=== PATIENT | female | born 1995 | race Caucasian/White ===

== ENCOUNTER 2020-09-18 18:48 | Emergency (ER) | payer BC ==
[~2020-09-18] VITALS: Ht 167.6 cm; Wt 99.8 kg
[2020-09-18] MEDS ORDERED: ADDERALL XR 2525 MG PO (19:04)
[2020-09-18] MEDS ORDERED: ULTRAM50 MG PO (22:17)
[2020-09-18] MEDS ORDERED: IBUPROFEN 800800 MG PO (22:17)
[2020-09-18 22:37] VITALS: BP 133/80
== END 2020-09-18 22:37 | disposition home or self-care (01) ==
LOC: M.ERS 18:48
DX: S43.015A Anterior dislocation of left humerus, initial encounter (principal); Z79.899 Other long term (current) drug therapy; X50.1XXA Overexertion from prolonged static or awkward postures, initial encounter; Y93.B9 Activity, other involving muscle strengthening exercises; Y92.89 Other specified places as the place of occurrence of the external cause; Y99.8 Other external cause status